=== PATIENT | female | born 1985 | race Native Hawaiian/Other Pacific Islander ===

== ENCOUNTER 2017-11-21 07:16 | Emergency (ER) | payer OTHER ==
[2017-11-21] MEDS ORDERED: Sodium Chloride 0.9% 1,000 ML IV ONE ×2 (08:11→09:58)
[2017-11-21 08:53] LABS: BASO % 0.2 % (0.0-2.0); HEMOGLOBIN 11.4 g/dL (11.0-16.0); LYMPH # 0.7 K/uL (1.0-4.3); LYMPH % 7.8 % (20.0-40.0); MEAN CELL VOLUME 83.7 fL (81.0-99.0); MEAN CORPUSCULAR HEMOGLOBIN 28.7 pg (27.0-31.0); MEAN CORPUSCULAR HGB CONC 34.3 g/dL (33.0-37.0); MEAN PLATELET VOLUME 9.2 fL (7.2-11.7); MONO # 0.8 K/uL (0.0-0.8); NEUT # 7.8 K/uL (1.8-7.0); PLATELET COUNT 155 K/uL (130-400); RBC 3.96 Mil/uL (3.80-5.20); RED CELL DISTRIBUTION WIDTH 14.1 % (11.5-14.5); WHITE BLOOD COUNT 9.3 K/uL (4.8-10.8)
[2017-11-21] MEDS ORDERED: Sodium Chloride 0.9% 1,000 ML ONE ×2 (08:57→10:03)
[2017-11-21 09:04] LABS: ALB/GLOB RATIO 1.3 (1.0-2.1); ALBUMIN 4.4 g/dL (3.5-5.0); ALT/SGPT 20 U/L (9-52); AST/SGOT 22 U/L (14-36); BLOOD UREA NITROGEN 8 mg/dL (7-17); CALCIUM 9.3 mg/dl (8.6-10.4); GFR NON-AFRICAN AMERICAN > 60; LIPASE 25 U/L (23-300)
[2017-11-21 09:17] LABS: BASOPHIL 1 % (0-2); HYPOCHROMIC SLIGHT; LYMPHOCYTE 10 % (20-40); MONOCYTE 7 % (0-10); NEUTROPHIL 82 % (50-75); PLATELET ESTIMATE NORMAL (NORMAL); TOTAL CELLS COUNTED 100
--- NOTE | 2017-11-21 09:27 | C.PDOC ---
History Of Present Illness 32-year-old female, presents to the emergency department with complaints of fever, body aches, frontal headache and back pain since yesterday. Patient notes some associated nausea. Denies vomiting, fever, chills. No other complaints at this time. Time Seen by Provider: 11/21/17 07:34 Chief Complaint (Nursing): Fever History Per: Patient History/Exam Limitations: no limitations Current Symptoms Are (Timing): Still Present Past Medical History Reviewed: Historical Data, Nursing Documentation, Vital Signs Vital Signs: Last Vital Signs Temp 99.4 F 11/21/17 11:12 Pulse 97 H 11/21/17 11:12 Resp 18 11/21/17 11:12 BP 100/54 L 11/21/17 11:12 Pulse Ox 95 11/21/17 11:27 Family History: States: No Known Family Hx - Social History Hx Alcohol Use: No Hx Substance Use: No - Immunization History Hx Tetanus Toxoid Vaccination: No Hx Influenza Vaccination: No Hx Pneumococcal Vaccination: No Review Of Systems Constitutional: Positive for: Fever, Chills, Malaise Respiratory: Negative for: Cough, Shortness of Breath Gastrointestinal: Positive for: Nausea, Abdominal Pain. Negative for: Vomiting , Diarrhea Genitourinary: Negative for: Vaginal Discharge, Vaginal Bleeding, Pelvic Pain Musculoskeletal: Positive for: Back Pain Skin: Negative for: Rash Neurological: Positive for: Headache. Negative for: Weakness, Numbness, Dizziness Physical Exam - Physical Exam Appears: Non-toxic, No Acute Distress Skin: Normal Color, Warm, Dry, No Rash Head: Atraumatic, Normacephalic, Other (No Nuchal rigdity) Eye(s): bilateral: Normal Inspection Nose: Normal Oral Mucosa: Moist Lips: Normal Appearing Neck: Normal ROM Chest: Symmetrical Cardiovascular: Rhythm Regular, No Murmur Respiratory: Normal Breath Sounds, No Decreased Breath Sounds Gastrointestinal/Abdominal: Soft, No Tenderness Back: CVA Tenderness (right) Extremity: Normal ROM, No Deformity Neurological/Psych: Oriented x3, Normal Speech ED Course And Treatment - Laboratory Results Result Diagrams: 11/21/17 08:47 11/21/17 08:47 O2 Sat by Pulse Oximetry: 95 Pulse Ox Interpretation: Normal (RA) Medical Decision Making Medical Decision Making: Plan: * Bloodwork * Toradol, Zofran, Pepcid * UA * Reassess and Disposition repeat temp 99.6, bp 100/50 hr 92 bpm patient states improvement. Will discharge home to follow up with pmd within 2 days Pt has pyelonephritis, will attempt to treat it outpatient she will f.u with PMD in 1-2 days if symptoms persist or worsen Disposition - Disposition Referrals: [facility] at [facility] [Outside] Jermain Núñez Jr., MD [Medical Doctor] - Disposition: HOME/ ROUTINE Disposition Time: 11:03 Condition: STABLE Additional Instructions: follow up with your doctor or recommended doctor within 2 days call to make an appointment take medications as prescribed drink plenty of fluids return to ER if symptoms worsens or progress Prescriptions: Ciprofloxacin HCl [Cipro] 500 mg PO BID #20 tab Naproxen [Naprosyn] 500 mg PO BID PRN #16 tab PRN Reason: Pain, Moderate (4-7) Instructions: Kidney Infection Forms: General Discharge Instructions, [facility] ([place]), School Excuse - Clinical Impression Clinical Impression: Fever, UTI (urinary tract infection), Pyelonephritis - Scribe Statement The provider has reviewed the documentation as recorded by the Scribe (Rukhsana Arriaga) All medical record entries made by the Scribe were at my direction and personally dictated by me. I have reviewed the chart and agree that the record accurately reflects my personal performance of the history, physical exam, medical decision making, and the department course for this patient. I have also personally directed, reviewed, and agree with the discharge instructions and disposition.
[2017-11-21 09:40] LABS: SQUAMOUS EPITHIAL 5 /hpf (0-5); URINE BACTERIA OCC (<OCC); URINE BILIRUBIN NEGATIVE (NEGATIVE); URINE BLOOD 1+ (NEGATIVE); URINE COLOR Straw (YELLOW); URINE GLUCOSE (UA) NORMAL (Normal); URINE LEUKOCYTE ESTERASE 1+ Leu/uL (Negative); URINE PROTEIN NEGATIVE (NEGATIVE); URINE UROBILINOGEN NORMAL mg/dL (0.2-1.0)
[2017-11-21 09:46] LABS: URINE CLARITY SLHAZY (Clear)
--- NOTE | 2017-11-21 09:55 | RAD ---
Date of service: 11/21/2017 PROCEDURE: Radiographs of the chest and abdomen (obstructive series) HISTORY: abd pain COMPARISON: No prior. TECHNIQUE: AP radiograph of the chest, with upright and supine radiographs of the abdomen. FINDINGS: CHEST: Lungs: Clear. Cardiovascular: Normal size heart. No pulmonary vascular congestion. Pleura: No pleural fluid. No pneumothorax. Other findings: None. ABDOMEN AND PELVIS: Bowel: Unremarkable bowel gas pattern. No evidence of mechanical obstruction. Free air: None. Bones: Unremarkable. Other findings: None. IMPRESSION: Unremarkable radiographs of chest and abdomen. No evidence of mechanical bowel obstruction.
[2017-11-21] MEDS ORDERED: cefTRIAXone 1 gm 1 GM/100 ML BAG IVPB ONE (10:50)
[2017-11-21 11:03] VITALS: O2SAT 95
[2017-11-21 11:13] VITALS: BP 100/54; PULSE 97; RESP 18; TEMP 99.4
== END 2017-11-21 12:22 | disposition home or self-care (01) ==
LOC: C.ER 07:16
DX: N12 Tubulo-interstitial nephritis, not specified as acute or chronic (principal); N39.0 Urinary tract infection, site not specified; R50.9 Fever, unspecified
CPT/HCPCS: 74022; 80053; 81001; 83690; 84443; 85025; 87040; 87086; 87181; 87804; 96361; 96365; 96375; 99285; J0696; J1885; J2405; J7030

== ENCOUNTER 2017-11-27 19:42 | Inpatient (IN) | payer OTHER ==
[2017-11-27] MEDS ORDERED: cefTRIAXone IV 1 gm in Dextros 50 ML IVPB STA (20:08)
[2017-11-27 20:21] LABS: BASO % 0.3 % (0.0-2.0); LYMPH # 1.4 K/uL (1.0-4.3); LYMPH % 15.2 % (20.0-40.0); MEAN CELL VOLUME 81.4 fL (81.0-99.0); MEAN CORPUSCULAR HGB CONC 35.6 g/dL (33.0-37.0); MEAN PLATELET VOLUME 8.4 fL (7.2-11.7); NEUT # 6.8 K/uL (1.8-7.0); NEUT % 73.5 % (50.0-75.0); RBC 3.79 Mil/uL (3.80-5.20); RED CELL DISTRIBUTION WIDTH 14.1 % (11.5-14.5); WHITE BLOOD COUNT 9.3 K/uL (4.8-10.8)
[2017-11-27] MEDS ORDERED: Lactated Ringer's 1,000 ML ONE (20:25)
[2017-11-27] MEDS ORDERED: Sodium Chloride 0.9% 1,000 ML IV ONE (20:27)
[2017-11-27 20:32] LABS: SQUAMOUS EPITHIAL 8 /hpf (0-5); URINE BACTERIA FEW (<OCC); URINE BILIRUBIN NEGATIVE (NEGATIVE); URINE BLOOD 3+ (NEGATIVE); URINE CLARITY Hazy (Clear); URINE COLOR Yellow (YELLOW); URINE GLUCOSE (UA) NORMAL (Normal); URINE LEUKOCYTE ESTERASE TRACE Leu/uL (Negative); URINE PROTEIN 1+ mg/dL (NEGATIVE); URINE UROBILINOGEN NORMAL mg/dL (0.2-1.0)
[2017-11-27 20:36] LABS: INR 1.3; PROTHROMBIN TIME 14.5 SECONDS (9.7-12.2)
[2017-11-27] MEDS ORDERED: Piperacillin/Tazobact 3.375 gm 100 ML IV STA (20:42)
[2017-11-27 20:47] LABS: ALB/GLOB RATIO 1.3 (1.0-2.1); ALBUMIN 4.3 g/dL (3.5-5.0); ALT/SGPT 31 U/L (9-52); AST/SGOT 19 U/L (14-36); BLOOD UREA NITROGEN 5 mg/dL (7-17); CALCIUM 9.4 mg/dl (8.6-10.4); GFR NON-AFRICAN AMERICAN > 60
[2017-11-27] MEDS ORDERED: Piperacillin/Tazobact 3.375 gm 100 ML IVPB ONE (20:48)
--- NOTE | 2017-11-27 20:49 | C.PDOC ---
History Of Present Illness 32 y/o female presents to the ED with complaints of right flank pain for the last 4 days. She reports she was originally seen here and diagnosed with pyelonephritis. Patient states she has taken the antibiotics at home but yesterday developed fever, vomiting, bodyaches, and worsening right flank pain. Denies any associated diarrhea, hematuria, chest pain, shortness of breath, or other complaints. She took Tylenol at home for pain, last dose was around 2: 00pm. PMD: None Time Seen by Provider: 11/27/17 19:54 Chief Complaint (Nursing): Back Pain History Per: Patient History/Exam Limitations: no limitations Onset/Duration Of Symptoms: Days (x4) Current Symptoms Are (Timing): Still Present Quality Of Discomfort: "Pain" Past Medical History Reviewed: Historical Data, Nursing Documentation, Vital Signs Vital Signs: Last Vital Signs Temp 101.7 F H 11/27/17 19:45 Pulse 109 H 11/27/17 19:45 Resp 16 11/27/17 19:45 BP 112/75 11/27/17 19:45 Pulse Ox 99 11/28/17 00:24 - Medical History PMH: No Chronic Diseases Surgical History: No Surg Hx Family History: States: Hypertension - Social History Hx Tobacco Use: No Hx Alcohol Use: No Hx Substance Use: No - Immunization History Hx Tetanus Toxoid Vaccination: No Hx Influenza Vaccination: No Hx Pneumococcal Vaccination: No Review Of Systems Except As Marked, All Systems Reviewed And Found Negative. Constitutional: Positive for: Fever, Other (Generalized bodyaches) Cardiovascular: Negative for: Chest Pain Respiratory: Negative for: Shortness of Breath Gastrointestinal: Positive for: Vomiting. Negative for: Diarrhea, Hematochezia , Hematemesis Genitourinary: Negative for: Hematuria Musculoskeletal: Positive for: Other (Right flank pain) Neurological: Negative for: Weakness, Dizziness Physical Exam - Physical Exam Appears: In Acute Distress (in painful distress), Other (Febrile, tired appearing) Skin: Dry, Pale Head: Atraumatic, Normacephalic Eye(s): bilateral: Normal Inspection Oral Mucosa: Moist Throat: No Erythema, No Exudate Neck: Normal ROM, Supple Lymphatic: No Adenopathy Chest: Symmetrical Cardiovascular: Rhythm Regular (but tachycardic), No Murmur Respiratory: Normal Breath Sounds, No Rales, No Rhonchi, No Wheezing Gastrointestinal/Abdominal: Soft, No Tenderness, No Mass, No Distention, No Guarding, No Rebound Back: CVA Tenderness (Right-sided), No Decreased ROM Extremity: Normal ROM, No Deformity Extremity: Bilateral: Atraumatic, Normal Color And Temperature, Normal ROM Neurological/Psych: Oriented x3, Normal Cranial Nerves, Normal Motor, Normal Sensation ED Course And Treatment - Laboratory Results Result Diagrams: 11/27/17 20:17 11/27/17 20:17 O2 Sat by Pulse Oximetry: 99 (RA) Pulse Ox Interpretation: Normal Medical Decision Making Medical Decision Making: Initial Impression: Pyelonephritis, failed outpatient treatment, sepsis Plan: --EKG --VBG --CMP --Magnesium --Phosphorous --CBC --PTT/PT --UA --Urine preg --Urine culture --Blood culture --Chest X-Ray --NSS IV fluids x 1 L --Tylenol 975 mg PO --Reassessment Records reviewed, Urine culture on 11/23/17 demonstrated resistance to multiple antibiotics. Will start patient on IV zosyn. Labs demonstrate UTI. Otherwise no clinically significant abnormalities Hospitalized for aggressive treatment of pyelonephrities Dr Dev Quezada Medical Service made aware. Disposition Counseled Patient/Family Regarding: Studies Performed, Diagnosis - Disposition Disposition: HOSPITALIZED Disposition Time: 21:00 Condition: FAIR - POA Present On Arrival: None - Clinical Impression Clinical Impression: Pyelonephritis, Sepsis - Scribe Statement The provider has reviewed the documentation as recorded by the Fredrick Nowak Provider Attestation: All medical record entries made by the Fredrick were at my direction and personally dictated by me. I have reviewed the chart and agree that the record accurately reflects my personal performance of the history, physical exam, medical decision making, and the department course for this patient. I have also personally directed, reviewed, and agree with the discharge instructions and disposition.
[2017-11-27 21:12] LABS: VENOUS BLOOD GAS BASE EXCESS 1.7 mmol/L (0.0-2.0); VENOUS BLOOD GAS PCO2 38 mmHg (40-60); VENOUS BLOOD GAS PO2 24 mm/Hg (30-55); VENOUS BLOOD PH 7.44 (7.32-7.43)
[2017-11-27] MEDS ORDERED: Sodium Chloride 0.45% 1,000 ML IV SCH (21:45)
--- NOTE | 2017-11-27 23:57 | CP.PCM.HP ---
Past Patient History - Past Social History Smoking Status: Never Smoked - RENAL Hx Pyelonephritis: Yes Other/Comment: Kidney infection - PSYCHIATRIC Hx Substance Use: No - SURGICAL HISTORY Hx Surgeries: No - ANESTHESIA Hx Anesthesia: No Meds Allergies/Adverse Reactions: Allergies Allergy/AdvReac Type Severity Reaction Status Date / Time tinidazole Allergy RASH Verified 11/27/17 19:51 Results - Vital Signs Recent Vital Signs: Last Vital Signs Temp 101.7 F H 11/27/17 19:45 Pulse 109 H 11/27/17 19:45 Resp 16 11/27/17 19:45 BP 112/75 11/27/17 19:45 Pulse Ox 99 11/27/17 20:56 - Labs Result Diagrams: 11/27/17 20:17 11/27/17 20:17 Labs: Laboratory Results - last 24 hr 11/27/17 11/27/17 11/27/17 20:17 20:17 20:17 WBC 9.3 RBC 3.79 L Hgb 11.0 Hct 30.9 L MCV 81.4 MCH 29.0 MCHC 35.6 RDW 14.1 Plt Count 209 MPV 8.4 Neut % (Auto) 73.5 Lymph % (Auto) 15.2 L Camp % (Auto) 11.0 H Eos % (Auto) 0.0 Baso % (Auto) 0.3 Neut # (Auto) 6.8 Lymph # (Auto) 1.4 Camp # (Auto) 1.0 H Eos # (Auto) 0.0 Baso # (Auto) 0.0 PT 14.5 H INR 1.3 APTT 35 H pO2 VBG pH VBG pCO2 VBG HCO3 VBG Total CO2 VBG O2 Sat (Calc) VBG Base Excess VBG Potassium Glucose Lactate Sodium 134 Potassium 3.6 Chloride 97 L Carbon Dioxide 24 Anion Gap 17 BUN 5 L Creatinine 0.7 Est GFR ( Amer) > 60 Est GFR (Non-Af Amer) > 60 Random Glucose 125 H Calcium 9.4 Phosphorus 2.7 Magnesium 2.0 Total Bilirubin 0.5 AST 19 ALT 31 Alkaline Phosphatase 62 Total Protein 7.6 Albumin 4.3 Globulin 3.3 Albumin/Globulin Ratio 1.3 Venous Blood Potassium Urine Color Urine Clarity Urine pH Ur Specific [place] Urine Protein Urine Glucose (UA) Urine Ketones Urine Blood Urine Nitrate Urine Bilirubin Urine Urobilinogen Ur Leukocyte Esterase Urine WBC (Auto) Urine RBC (Auto) Ur Squamous Epith Cells Urine Bacteria 11/27/17 11/27/17 20:20 21:00 WBC RBC Hgb Hct MCV MCH MCHC RDW Plt Count MPV Neut % (Auto) Lymph % (Auto) Camp % (Auto) Eos % (Auto) Baso % (Auto) Neut # (Auto) Lymph # (Auto) Camp # (Auto) Eos # (Auto) Baso # (Auto) PT INR APTT pO2 24 L VBG pH 7.44 H VBG pCO2 38 L VBG HCO3 24.9 VBG Total CO2 27.0 VBG O2 Sat (Calc) 51.0 VBG Base Excess 1.7 VBG Potassium 3.2 L Glucose 101 Lactate 0.8 Sodium 135.0 Potassium Chloride 102.0 Carbon Dioxide Anion Gap BUN Creatinine Est GFR ( Amer) Est GFR (Non-Af Amer) Random Glucose Calcium Phosphorus Magnesium Total Bilirubin AST ALT Alkaline Phosphatase Total Protein Albumin Globulin Albumin/Globulin Ratio Venous Blood Potassium 3.2 L Urine Color Yellow Urine Clarity Hazy Urine pH 6.0 Ur Specific [place] 1.016 Urine Protein 1+ H Urine Glucose (UA) Normal Urine Ketones 2+ H Urine Blood 3+ H Urine Nitrate Negative Urine Bilirubin Negative Urine Urobilinogen Normal Ur Leukocyte Esterase Trace Urine WBC (Auto) 9 H Urine RBC (Auto) 202 H Ur Squamous Epith Cells 8 H Urine Bacteria Few H
--- NOTE | 2017-11-28 07:22 | CP.PCM.PN ---
Subjective - Date & Time of Evaluation Date of Evaluation: 11/28/17 Time of Evaluation: 09:00 - Subjective Subjective: Progress Note for Dr. Baron Quezada's Service This is a 32 year old female with no significant PMHx who admits to pain during urination since 11/21/17 and right sided flank pain x 4 days. Patient reports she started having dysuria, hematuria, urinary frequency x 1 week. She was seen in the ED twice 11/21 and 11/27 discharged with cipro and macrobid, respectively. She returns today due to her symptoms persisting, with new onset fever, chills, flank pain x 4 days. Patient reports compliance with the antibiotics but continues with symptoms. Denied chest pain, shortness of breath, abdominal pain , n/v/d/ or constipation. PMHx: Denied PSHx: Denied Meds: Cipro and macrobid All: Tinidazole - rash SHx: Denied tobacco, alcohol, and illicit drug use Objective - Vital Signs/Intake and Output Vital Signs (last 24 hours): Temp Pulse Resp BP Pulse Ox 98.5 F 76 14 98/64 L 98 11/28/17 06:58 11/28/17 06:58 11/28/17 06:58 11/28/17 06:58 11/28/17 06:58 - Medications Medications: Current Medications Enoxaparin Sodium (Lovenox) 40 mg SC DAILY [facility] Sodium Chloride (Sodium Chloride 0.45%) 1,000 mls @ 125 mls/hr IV .Q8H [facility] Last Admin: 11/27/17 23:02 Dose: 125 mls/hr Meropenem 500 mg/ Sodium (Chloride) 100 mls @ 100 mls/hr IVPB Q8H [facility] PRN Reason: Protocol Pantoprazole Sodium (Protonix Ec Tab) 40 mg PO DAILY [facility] Saccharomyces Boulardii (Florastor) 250 mg PO Q12 [facility] - Labs Labs: 11/27/17 20:17 11/27/17 20:17 PT 14.5 SECONDS (9.7-12.2) H 11/27/17 20:17 INR 1.3 11/27/17 20:17 APTT 35 SECONDS (21-34) H 11/27/17 20:17 - Constitutional Appears: No Acute Distress - Head Exam Head Exam: NORMAL INSPECTION, NORMOCEPHALIC - Eye Exam Eye Exam: EOMI, Normal appearance, PERRL Pupil Exam: NORMAL ACCOMODATION - ENT Exam ENT Exam: Mucous Membranes Moist, Normal Exam - Neck Exam Neck Exam: Normal Inspection - Respiratory Exam Respiratory Exam: Clear to Ausculation Bilateral, NORMAL BREATHING PATTERN. absent: Decreased Breath Sounds, Wheezes - Cardiovascular Exam Cardiovascular Exam: REGULAR RHYTHM, RRR - GI/Abdominal Exam GI & Abdominal Exam: Soft, Normal Bowel Sounds. absent: Distended, Tenderness - Extremities Exam Extremities Exam: Normal Inspection. absent: Pedal Edema, Tenderness - Back Exam Back Exam: CVA tenderness (R), NORMAL INSPECTION - Neurological Exam Neurological Exam: Alert, Awake, CN II-XII Intact, Oriented x3 - Psychiatric Exam Psychiatric exam: Normal Affect, Normal Mood - Skin Skin Exam: Dry, Intact, Normal Color, Warm Assessment and Plan - Assessment and Plan (Free Text) Plan: Pyelonephritis (Right) -- ID consulted, Dr. Fregoso - TMax 101.7 on admission, no leukocytosis, no left shift, vitals stable - Previous UC on 11/21/17 grew E.coli resistant to many antibiotics, especially cipro and macrobid - F/U urine culture Imaging: - CT abdomen/pelvis- pending Management: - IVF, Meropenem, Florastor, analgesics PRN, tylenol PRN, Zofran PRN Prophylactic Measures - GI PPX: Protonix, Florastor - DVT PPX: SCDs, Lovenox Disposition: Pending repeat UC to determine antibiotic regimen and to determine if picc line is needed for longer IV course. Pending ID reccs. All orders and management as per Dr. Baron Quezada -- Radha Mahmood DO, PGY2
[2017-11-28] MEDS ORDERED: Meropenem 500 MG in Sodium Chloride 0.9% 100 ML IVPB SCH (09:00)
--- NOTE | 2017-11-28 09:19 | RAD ---
Date of service: 11/27/2017 HISTORY: Sepsis Patient COMPARISON: No prior. FINDINGS: LUNGS: No active pulmonary disease. PLEURA: No significant pleural effusion identified, no pneumothorax apparent. CARDIOVASCULAR: Normal. OSSEOUS STRUCTURES: No significant abnormalities. VISUALIZED UPPER ABDOMEN: Normal. OTHER FINDINGS: None. IMPRESSION: No active disease.
[2017-11-28 09:54] LABS: ALB/GLOB RATIO 1.2 (1.0-2.1); ALBUMIN 3.3 g/dL (3.5-5.0); ALT/SGPT 30 U/L (9-52); AST/SGOT 17 U/L (14-36); BLOOD UREA NITROGEN 5 mg/dL (7-17); CALCIUM 7.8 mg/dl (8.6-10.4); GFR NON-AFRICAN AMERICAN > 60
[2017-11-28] MEDS: Enoxaparin 40 mg Syringe SC SCH (10:22)
[2017-11-28] MEDS: Pantoprazole 40 mg EC Tab PO SCH (10:22)
[2017-11-28] MEDS: Saccharomyces Boulardi 250 mg Cap PO SCH ×2 (10:22→22:58)
[2017-11-28] MEDS: Meropenem 1 GM in Sodium Chloride 0.9% 100 ML IVPB SCH ×2 (10:28→19:31)
[2017-11-28] MEDS: Sodium Chloride 0.9% 1,000 ML IV SCH ×2 (10:45→17:17)
--- NOTE | 2017-11-28 12:57 | CARD ---
APPROVED REPORT Date of service: 11/27/2017 EKG Measurement Heart [id number] <Conclusion> Sinus tachycardia Otherwise normal ECG
[2017-11-28 13:14] VITALS: RESP 20
[2017-11-28] MEDS ORDERED: Iohexol 240 (50 ml) PO ONE ×2 (15:00→17:09)
--- NOTE | 2017-11-28 20:35 | CP.PCM.PN ---
Subjective - Date & Time of Evaluation Date of Evaluation: 11/28/17 Time of Evaluation: 09:15 - Subjective Subjective: clinically same Objective - Vital Signs/Intake and Output Vital Signs (last 24 hours): Temp Pulse Resp BP Pulse Ox 98.6 F 81 20 105/64 100 11/28/17 16:00 11/28/17 16:00 11/28/17 16:00 11/28/17 16:00 11/28/17 16:00 - Medications Medications: Current Medications Acetaminophen (Tylenol 325mg Tab) 650 mg PO Q6 PRN PRN Reason: Fever >100.4 F Last Admin: 11/28/17 14:00 Dose: 650 mg Enoxaparin Sodium (Lovenox) 40 mg SC DAILY [facility] Last Admin: 11/28/17 10:22 Dose: 40 mg Meropenem 1 gm/ Sodium (Chloride) 100 mls @ 100 mls/hr IVPB Q8H [facility] PRN Reason: Protocol Last Admin: 11/28/17 19:31 Dose: 100 mls/hr Sodium Chloride (Sodium Chloride 0.9%) 1,000 mls @ 150 mls/hr IV .Q6H40M [facility] Last Admin: 11/28/17 17:17 Dose: 150 mls/hr Ondansetron HCl (Zofran Inj) 4 mg IVP Q6 PRN PRN Reason: Nausea/Vomiting Pantoprazole Sodium (Protonix Ec Tab) 40 mg PO DAILY [facility] Last Admin: 11/28/17 10:22 Dose: 40 mg Saccharomyces Boulardii (Florastor) 250 mg PO Q12 [facility] Last Admin: 11/28/17 10:22 Dose: 250 mg - Labs Labs: 11/27/17 20:17 11/28/17 09:14 PT 14.5 SECONDS (9.7-12.2) H 11/27/17 20:17 INR 1.3 11/27/17 20:17 APTT 35 SECONDS (21-34) H 11/27/17 20:17
--- NOTE | 2017-11-28 21:36 | CP.PCM.CON ---
History of Present Illness - History of Present Illness History of Present Illness: dictated Past Patient History - Past Social History Smoking Status: Never Smoked - RENAL Hx Pyelonephritis: Yes Other/Comment: Kidney infection - PSYCHIATRIC Hx Substance Use: No - SURGICAL HISTORY Hx Surgeries: No - ANESTHESIA Hx Anesthesia: No Meds Allergies/Adverse Reactions: Allergies Allergy/AdvReac Type Severity Reaction Status Date / Time tinidazole Allergy RASH Verified 11/27/17 19:51 - Medications Medications: Current Medications Acetaminophen (Tylenol 325mg Tab) 650 mg PO Q6 PRN PRN Reason: Fever >100.4 F Last Admin: 11/28/17 14:00 Dose: 650 mg Enoxaparin Sodium (Lovenox) 40 mg SC DAILY [facility] Last Admin: 11/28/17 10:22 Dose: 40 mg Meropenem 1 gm/ Sodium (Chloride) 100 mls @ 100 mls/hr IVPB Q8H [facility] PRN Reason: Protocol Last Admin: 11/28/17 19:31 Dose: 100 mls/hr Sodium Chloride (Sodium Chloride 0.9%) 1,000 mls @ 150 mls/hr IV .Q6H40M [facility] Last Admin: 11/28/17 17:17 Dose: 150 mls/hr Ondansetron HCl (Zofran Inj) 4 mg IVP Q6 PRN PRN Reason: Nausea/Vomiting Pantoprazole Sodium (Protonix Ec Tab) 40 mg PO DAILY [facility] Last Admin: 11/28/17 10:22 Dose: 40 mg Saccharomyces Boulardii (Florastor) 250 mg PO Q12 [facility] Last Admin: 11/28/17 10:22 Dose: 250 mg Results - Vital Signs Recent Vital Signs: Last Vital Signs Temp 98.6 F 11/28/17 16:00 Pulse 81 11/28/17 16:00 Resp 20 11/28/17 16:00 BP 105/64 11/28/17 16:00 Pulse Ox 100 11/28/17 16:00 - Labs Result Diagrams: 11/27/17 20:17 11/28/17 09:14 Labs: Laboratory Results - last 24 hr 11/28/17 09:14 Sodium 137 Potassium 3.6 Chloride 106 Carbon Dioxide 21 L Anion Gap 14 BUN 5 L Creatinine 0.5 L Est GFR ( Amer) > 60 Est GFR (Non-Af Amer) > 60 Random Glucose 87 Calcium 7.8 L Phosphorus 2.6 Magnesium 2.0 Total Bilirubin 0.4 AST 17 ALT 30 Alkaline Phosphatase 46 Total Protein 6.1 L Albumin 3.3 L D Globulin 2.8 Albumin/Globulin Ratio 1.2
[2017-11-29] MEDS: Sodium Chloride 0.9% 1,000 ML IV SCH ×4 (00:16→17:58)
[2017-11-29] MEDS: Meropenem 1 GM in Sodium Chloride 0.9% 100 ML IVPB SCH ×3 (02:34→17:57)
[2017-11-29 07:38] LABS: BASO % 0.5 % (0.0-2.0); EOS % 0.6 % (0.0-4.0); HEMOGLOBIN 9.4 g/dL (11.0-16.0); LYMPH # 2.2 K/uL (1.0-4.3); LYMPH % 33.4 % (20.0-40.0); MEAN CELL VOLUME 82.2 fL (81.0-99.0); MEAN CORPUSCULAR HEMOGLOBIN 28.8 pg (27.0-31.0); MEAN CORPUSCULAR HGB CONC 35.1 g/dL (33.0-37.0); MEAN PLATELET VOLUME 8.2 fL (7.2-11.7); MONO # 0.5 K/uL (0.0-0.8); MONO % 7.9 % (0.0-10.0); NEUT # 3.7 K/uL (1.8-7.0); NEUT % 57.6 % (50.0-75.0); NRBC % 0.1 % (0.0-2.0); RBC 3.26 Mil/uL (3.80-5.20); WHITE BLOOD COUNT 6.5 K/uL (4.8-10.8)
--- NOTE | 2017-11-29 07:45 | CP.PCM.PN ---
Subjective - Date & Time of Evaluation Date of Evaluation: 11/29/17 Time of Evaluation: 07:00 - Subjective Subjective: Progress Note for Dr. Baron Quezada's Service Patient seen and examined at bedside. Patient reports she feels only slightly better. The flank pain is still persistent. Admitted to feeling warm last night. Denied chills, chest pain, shortness of breath, abdominal pain, n/v/d/ or constipation. Objective - Vital Signs/Intake and Output Vital Signs (last 24 hours): Temp Pulse Resp BP Pulse Ox 98.2 F 86 20 108/71 99 11/29/17 07:40 11/29/17 07:40 11/29/17 07:40 11/29/17 07:40 11/29/17 07:40 Intake and Output: 11/29/17 11/29/17 06:59 18:59 Intake Total 1560 Balance 1560 - Medications Medications: Current Medications Acetaminophen (Tylenol 325mg Tab) 650 mg PO Q6 PRN PRN Reason: Fever >100.4 F Last Admin: 11/28/17 23:44 Dose: 650 mg Enoxaparin Sodium (Lovenox) 40 mg SC DAILY [facility] Last Admin: 11/28/17 10:22 Dose: 40 mg Meropenem 1 gm/ Sodium (Chloride) 100 mls @ 100 mls/hr IVPB Q8H [facility] PRN Reason: Protocol Last Admin: 11/29/17 02:34 Dose: 100 mls/hr Sodium Chloride (Sodium Chloride 0.9%) 1,000 mls @ 150 mls/hr IV .Q6H40M [facility] Last Admin: 11/29/17 06:46 Dose: 150 mls/hr Ondansetron HCl (Zofran Inj) 4 mg IVP Q6 PRN PRN Reason: Nausea/Vomiting Pantoprazole Sodium (Protonix Ec Tab) 40 mg PO DAILY [facility] Last Admin: 11/28/17 10:22 Dose: 40 mg Saccharomyces Boulardii (Florastor) 250 mg PO Q12 [facility] Last Admin: 11/28/17 22:58 Dose: 250 mg - Labs Labs: 11/29/17 07:20 11/28/17 09:14 PT 14.5 SECONDS (9.7-12.2) H 11/27/17 20:17 INR 1.3 11/27/17 20:17 APTT 35 SECONDS (21-34) H 11/27/17 20:17 - Additional Findings Additional findings: - Constitutional Appears: No Acute Distress - Head Exam Head Exam: NORMAL INSPECTION, NORMOCEPHALIC - Eye Exam Eye Exam: EOMI, Normal appearance, PERRL Pupil Exam: NORMAL ACCOMODATION - ENT Exam ENT Exam: Mucous Membranes Moist, Normal Exam - Neck Exam Neck Exam: Normal Inspection - Respiratory Exam Respiratory Exam: Clear to Ausculation Bilateral, NORMAL BREATHING PATTERN. absent: Decreased Breath Sounds, Wheezes - Cardiovascular Exam Cardiovascular Exam: REGULAR RHYTHM, RRR - GI/Abdominal Exam GI & Abdominal Exam: Soft, Normal Bowel Sounds. absent: Distended, Tenderness - Extremities Exam Extremities Exam: Normal Inspection. absent: Pedal Edema, Tenderness - Back Exam Back Exam: CVA tenderness (R), NORMAL INSPECTION - Neurological Exam Neurological Exam: Alert, Awake, CN II-XII Intact, Oriented x3 - Psychiatric Exam Psychiatric exam: Normal Affect, Normal Mood - Skin Skin Exam: Dry, Intact, Normal Color, Warm Assessment and Plan - Assessment and Plan (Free Text) Plan: Pyelonephritis (Right) --- ID consulted, Dr. Fregoso - TMax 101.7 on admission, no leukocytosis, no left shift, vitals stable - Previous UC on 11/21/17 grew E.coli, resistant to many antibiotics, especially cipro and macrobid - F/U urine culture Management: - IVF, Meropenem, Florastor, analgesics PRN, tylenol PRN, Zofran PRN Anemia - Likely dilutional - Iron studies ordered - Will continue to monitor Prophylactic Measures - GI PPX: Protonix, Florastor - DVT PPX: SCDs, Lovenox Disposition: Pending repeat UC to determine antibiotic regimen and to determine if picc line is needed for longer IV course. Pending ID reccs. All orders and management as per Dr. Baron Quezada -- Radha Mahmood DO, PGY2
[2017-11-29 07:55] LABS: ALB/GLOB RATIO 1.1 (1.0-2.1); ALBUMIN 3.2 g/dL (3.5-5.0); ALT/SGPT 21 U/L (9-52); AST/SGOT 11 U/L (14-36); BLOOD UREA NITROGEN 2 mg/dL (7-17); CALCIUM 8.4 mg/dl (8.6-10.4); GFR NON-AFRICAN AMERICAN > 60
--- NOTE | 2017-11-29 09:12 | CON ---
DATE: 11/28/2017 INFECTIOUS DISEASE CONSULT REQUESTED BY: Earnestine Quezada MD HISTORY OF PRESENT ILLNESS: This patient is a 32-year-old female. She was having abdominal pain and she was seen on 11/21/2017 in the emergency room in [facility] by the ER physician and she was given Cipro and she was sent home as she did have UTI, and so they gave Cipro and sent her home. Then again, she was not feeling better. She was still having pain, abdominal pain. So she came on 11/23/[address] she had a CT scan done, which showed some mild pyelonephritis. She was given Macrodantin and she was sent home and last night she could not bear pain and was having headaches and was having nausea and having right flank pain. She has been taking the antibiotics, but it did not help her and she developed fever, vomiting, body aches, right flank pain, and severe headaches. She denied any hematuria or dysuria, but she was just not feeling right and not getting better, continued to have back pain and she decided to come back to the emergency room. 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 She says she may have had once UTI in the [place], otherwise she has been fine. She denies any medical problems. She does not take any medicines regularly. She says she was told that the urine was resistant to Cipro and so I changed it to Macrodantin. She came here with a fever of 101.7 yesterday. She is not having any nausea and vomiting when I am seeing her, but she still complains of terrible headache and is still not feeling well. PAST MEDICAL HISTORY: Noncontributory. Just one episode of UTI in the past. PAST SURGICAL HISTORY: No previous surgeries. FAMILY HISTORY: Significant for hypertension. SOCIAL HISTORY: Negative for smoking or drinking, or any drug abuse. She denies any sexual activity recently, but she has been sexually active in [place] and she is having her periods today which started just today, which may be also leading to abdominal pain. REVIEW OF SYSTEMS: Positive for fevers, severe headache. Denies any neck pain. No chest pain. No shortness of breath. No nausea. She did have vomiting before, she says yesterday, but no nausea or vomiting right now. No diarrhea. No hemoptysis or hematemesis. She does complain of feeling tired, but denies any hematuria, has dysuria and flank pain at this time. PHYSICAL EXAMINATION: VITAL SIGNS: I find her temperature is 98.6, pulse is 81, blood pressure was low at 94/55, right now it is 105/64, respirations are 20. HEENT: Head is atraumatic, normocephalic. Pupils are reacting to light. Eye movements are unremarkable. Tongue is still dry. NECK: Supple. JVP is flat. Trachea is central. CHEST: Chest wall is symmetrical. No crackles or rales heard. HEART: S1, S2 are regular. No murmurs appreciated. ABDOMEN: She has right flank tenderness. No guarding. No rigidity present. EXTREMITIES: Have no edema, clubbing, or cyanosis. SKIN: Normal. NEUROLOGIC: No neurological problems and she is alert, oriented x3. LABORATORY DATA: White count is 9.3, hemoglobin is 11, hematocrit 30.9, this is from last night, hemoglobin is 2.9. INR is 1.3. ABG was noted, pH 7.44, pCO2 is 38. Her bicarb is 24.9, and her lactate level was 0.8. She has CO2 of 21 now, creatinine is 0.5. I had ordered a CAT scan for her, but when I went to see her she told me she already had a CAT scan on 11/23/2017, so I have stopped the CAT scan today as I will follow the report of the previous CAT scan. UA shows from yesterday, wbc 9, rbc is 202, and urine bacteria few, ketones 2+, blood 3+, she has lot of blood there. Report in all visits, they did abdominal obstructive series when she came on 11/21/2017, which shows unremarkable radiology of chest and abdomen. No evidence of mechanical bowel obstruction, so that was on that date. Then she had an abdominal pelvic CT which was done on 11/23/2017, that is 5 days ago and that shows right kidney demonstrates a patchy density anteriorly on series 2 measuring 2 cm extending to the quadratus which is concerning for a focus of pyelonephritis, additional small foci of abnormal attenuation noted elsewhere in the right kidney. Clinical correlation. Mild cortical volume loss in the lower pole of the left kidney. There is moderate fecal retention, and she also has a follicular cyst in the right ovarian and she has some thickening of the bladder which shows cystitis, so she does have active right pyelonephritis and we will continue with meropenem. She will at least need 10 to 14 days of meropenem and if she does not continue to improve in the next 2 days, I think we will need an Urology evaluation. Sarai Fregoso MD
--- NOTE | 2017-11-29 10:28 | CP.PCM.PN ---
Subjective - Date & Time of Evaluation Date of Evaluation: 11/29/17 Time of Evaluation: 08:15 - Subjective Subjective: clinically same Objective - Vital Signs/Intake and Output Vital Signs (last 24 hours): Temp Pulse Resp BP Pulse Ox 98.2 F 86 20 108/71 99 11/29/17 07:40 11/29/17 07:40 11/29/17 07:40 11/29/17 07:40 11/29/17 07:40 Intake and Output: 11/29/17 11/29/17 06:59 18:59 Intake Total 1560 Balance 1560 - Medications Medications: Current Medications Acetaminophen (Tylenol 325mg Tab) 650 mg PO Q6 PRN PRN Reason: Fever >100.4 F Last Admin: 11/28/17 23:44 Dose: 650 mg Enoxaparin Sodium (Lovenox) 40 mg SC DAILY [facility] Last Admin: 11/28/17 10:22 Dose: 40 mg Meropenem 1 gm/ Sodium (Chloride) 100 mls @ 100 mls/hr IVPB Q8H [facility]OS PRN Reason: Protocol Last Admin: 11/29/17 02:34 Dose: 100 mls/hr Sodium Chloride (Sodium Chloride 0.9%) 1,000 mls @ 150 mls/hr IV .Q6H40M [facility] Last Admin: 11/29/17 06:46 Dose: 150 mls/hr Ondansetron HCl (Zofran Inj) 4 mg IVP Q6 PRN PRN Reason: Nausea/Vomiting Pantoprazole Sodium (Protonix Ec Tab) 40 mg PO DAILY [facility] Last Admin: 11/28/17 10:22 Dose: 40 mg Saccharomyces Boulardii (Florastor) 250 mg PO Q12 [facility] Last Admin: 11/28/17 22:58 Dose: 250 mg - Labs Labs: 11/29/17 07:20 11/29/17 07:20 PT 14.5 SECONDS (9.7-12.2) H 11/27/17 20:17 INR 1.3 11/27/17 20:17 APTT 35 SECONDS (21-34) H 11/27/17 20:17
[2017-11-29] MEDS: Pantoprazole 40 mg EC Tab PO SCH (11:02)
[2017-11-29] MEDS: Saccharomyces Boulardi 250 mg Cap PO SCH ×2 (11:02→21:51)
[2017-11-29] MEDS: Enoxaparin 40 mg Syringe SC SCH (11:02)
--- NOTE | 2017-11-29 14:47 | CP.PCM.PN ---
Subjective - Date & Time of Evaluation Date of Evaluation: 11/29/17 Time of Evaluation: 13:15 - Subjective Subjective: dictated Objective - Vital Signs/Intake and Output Vital Signs (last 24 hours): Temp Pulse Resp BP Pulse Ox 98.2 F 86 20 108/71 99 11/29/17 07:40 11/29/17 07:40 11/29/17 07:40 11/29/17 07:40 11/29/17 07:40 Intake and Output: 11/29/17 11/29/17 06:59 18:59 Intake Total 1560 Balance 1560 - Medications Medications: Current Medications Acetaminophen (Tylenol 325mg Tab) 650 mg PO Q6 PRN PRN Reason: Fever >100.4 F Last Admin: 11/28/17 23:44 Dose: 650 mg Enoxaparin Sodium (Lovenox) 40 mg SC DAILY [facility] Last Admin: 11/29/17 11:02 Dose: 40 mg Meropenem 1 gm/ Sodium (Chloride) 100 mls @ 100 mls/hr IVPB Q8H [facility] PRN Reason: Protocol Last Admin: 11/29/17 11:00 Dose: 100 mls/hr Sodium Chloride (Sodium Chloride 0.9%) 1,000 mls @ 150 mls/hr IV .Q6H40M [facility] Last Admin: 11/29/17 14:38 Dose: Not Given Ondansetron HCl (Zofran Inj) 4 mg IVP Q6 PRN PRN Reason: Nausea/Vomiting Pantoprazole Sodium (Protonix Ec Tab) 40 mg PO DAILY [facility] Last Admin: 11/29/17 11:02 Dose: 40 mg Saccharomyces Boulardii (Florastor) 250 mg PO Q12 [facility] Last Admin: 11/29/17 11:02 Dose: 250 mg - Labs Labs: 11/29/17 07:20 11/29/17 07:20 PT 14.5 SECONDS (9.7-12.2) H 11/27/17 20:17 INR 1.3 11/27/17 20:17 APTT 35 SECONDS (21-34) H 11/27/17 20:17
[2017-11-30] MEDS: Meropenem 1 GM in Sodium Chloride 0.9% 100 ML IVPB SCH ×2 (01:22→09:58)
[2017-11-30] MEDS: Sodium Chloride 0.9% 1,000 ML IV SCH ×2 (01:40→10:00)
[2017-11-30 08:30] VITALS: BP 112/79; PULSE 71; TEMP 98.1; O2SAT 99
[2017-11-30 08:32] LABS: BASO % 0.5 % (0.0-2.0); EOS # 0.1 K/uL (0.0-0.7); EOS % 1.3 % (0.0-4.0); HEMOGLOBIN 9.3 g/dL (11.0-16.0); LYMPH % 44.8 % (20.0-40.0); MEAN CELL VOLUME 82.2 fL (81.0-99.0); MEAN CORPUSCULAR HEMOGLOBIN 28.4 pg (27.0-31.0); MEAN CORPUSCULAR HGB CONC 34.5 g/dL (33.0-37.0); MEAN PLATELET VOLUME 8.2 fL (7.2-11.7); MONO # 0.4 K/uL (0.0-0.8); MONO % 9.4 % (0.0-10.0); NEUT # 1.9 K/uL (1.8-7.0); RBC 3.29 Mil/uL (3.80-5.20); RED CELL DISTRIBUTION WIDTH 13.9 % (11.5-14.5); WHITE BLOOD COUNT 4.4 K/uL (4.8-10.8)
[2017-11-30 08:33] LABS: IRON 38 ug/dL (37-170)
[2017-11-30 08:43] LABS: % IRON SATURATION 13 (20-55); ALB/GLOB RATIO 1.2 (1.0-2.1); ALBUMIN 3.5 g/dL (3.5-5.0); ALT/SGPT 32 U/L (9-52); AST/SGOT 15 U/L (14-36); BLOOD UREA NITROGEN 2 mg/dL (7-17); GFR NON-AFRICAN AMERICAN > 60; TOTAL IRON BINDING CAPACITY 292 ug/dL (250-450)
[2017-11-30 09:11] LABS: FERRITIN 45.9 ng/mL
--- NOTE | 2017-11-30 09:47 | CP.PCM.PN ---
Subjective - Date & Time of Evaluation Date of Evaluation: 11/30/17 Time of Evaluation: 09:00 - Subjective Subjective: Progress Note for Dr. Baron Quezada's Service Patient seen and examined at bedside. Patient reports she feels better. She admits to a slight headache. Denied chills, chest pain, shortness of breath, abdominal pain, n/v/d/ or constipation. Objective - Vital Signs/Intake and Output Vital Signs (last 24 hours): Temp Pulse Resp BP Pulse Ox 98.1 F 71 20 112/79 99 11/30/17 08:29 11/30/17 08:29 11/30/17 08:29 11/30/17 08:29 11/30/17 08:29 Intake and Output: 11/30/17 11/30/17 06:59 18:59 Intake Total 3010 Balance 3010 - Medications Medications: Current Medications Acetaminophen (Tylenol 325mg Tab) 650 mg PO Q6 PRN PRN Reason: Fever >100.4 F Last Admin: 11/28/17 23:44 Dose: 650 mg Enoxaparin Sodium (Lovenox) 40 mg SC DAILY [facility] Last Admin: 11/29/17 11:02 Dose: 40 mg Meropenem 1 gm/ Sodium (Chloride) 100 mls @ 100 mls/hr IVPB Q8H [facility] PRN Reason: Protocol Last Admin: 11/30/17 01:22 Dose: 100 mls/hr Sodium Chloride (Sodium Chloride 0.9%) 1,000 mls @ 150 mls/hr IV .Q6H40M [facility] Last Admin: 11/30/17 01:40 Dose: 150 mls/hr Ondansetron HCl (Zofran Inj) 4 mg IVP Q6 PRN PRN Reason: Nausea/Vomiting Pantoprazole Sodium (Protonix Ec Tab) 40 mg PO DAILY [facility] Last Admin: 11/29/17 11:02 Dose: 40 mg Saccharomyces Boulardii (Florastor) 250 mg PO Q12 [facility] Last Admin: 11/29/17 21:51 Dose: 250 mg - Labs Labs: 11/30/17 08:13 11/30/17 08:13 PT 14.5 SECONDS (9.7-12.2) H 11/27/17 20:17 INR 1.3 11/27/17 20:17 APTT 35 SECONDS (21-34) H 11/27/17 20:17 - Additional Findings Additional findings: - Constitutional Appears: No Acute Distress - Head Exam Head Exam: NORMAL INSPECTION, NORMOCEPHALIC - Eye Exam Eye Exam: EOMI, Normal appearance, PERRL Pupil Exam: NORMAL ACCOMODATION - ENT Exam ENT Exam: Mucous Membranes Moist, Normal Exam - Neck Exam Neck Exam: Normal Inspection - Respiratory Exam Respiratory Exam: Clear to Ausculation Bilateral, NORMAL BREATHING PATTERN. absent: Decreased Breath Sounds, Wheezes - Cardiovascular Exam Cardiovascular Exam: REGULAR RHYTHM, RRR - GI/Abdominal Exam GI & Abdominal Exam: Soft, Normal Bowel Sounds. absent: Distended, Tenderness - Extremities Exam Extremities Exam: Normal Inspection. absent: Pedal Edema, Tenderness - Back Exam Back Exam: CVA tenderness (R), NORMAL INSPECTION - Neurological Exam Neurological Exam: Alert, Awake, CN II-XII Intact, Oriented x3 - Psychiatric Exam Psychiatric exam: Normal Affect, Normal Mood - Skin Skin Exam: Dry, Intact, Normal Color, Warm Assessment and Plan - Assessment and Plan (Free Text) Plan: Pyelonephritis (Right) --- ID consulted, Dr. Fregoso - TMax 101.7 on admission, no leukocytosis, no left shift, vitals stable - Previous UC on 11/21/17 grew E.coli, resistant to many antibiotics, especially cipro and macrobid - Urine culture on this admission - <50,000 CFU, 11/21/17 UC grew ESBL + Management: - IVF, Meropenem, Florastor, analgesics PRN, tylenol PRN, Zofran PRN - PICC line to be inserted today, arranging for outpatient infusion center for total 10 day treatment Anemia - Likely dilutional - Iron studies ordered - WN - Will continue to monitor Prophylactic Measures - GI PPX: Protonix, Florastor - DVT PPX: SCDs, Lovenox 11/30/17 - - PICC line to be inserted today, arranging for outpatient infusion center for total 10 day treatment Disposition: Patient is medically stable for discharge as per Dr. Baron Quezada. Patient will continue to receive IV antiobiotics via the infusion center for total 10 day treatment. You are to continue receiving the antibiotics for total 10 days. When you come to get the medication. You will once a week (this will happen 2 times) you will have labs drawn to monitor your liver and kidney numbers. You will also be taking a probiotic twice a day to prevent the side effects that could happen when taking an antibiotic. Please hydrate yourself. Please follow up with your primary care doctor within 1- 2 weeks. Please follow up with the Infectious Disease Doctor - Dr. Fregoso - in 2 weeks. Please take care and be well! All orders and management as per Dr. Baron Quezada -- Radha Mahmood DO, PGY2
[2017-11-30] MEDS: Pantoprazole 40 mg EC Tab PO SCH (09:58)
[2017-11-30] MEDS: Enoxaparin 40 mg Syringe SC SCH ×2 (09:59→11:00)
[2017-11-30] MEDS: Saccharomyces Boulardi 250 mg Cap PO SCH (11:00)
[2017-11-30] MEDS ORDERED: Pneumococcal 23-Valent Vaccine IM ONE (12:20)
--- NOTE | 2017-11-30 12:43 | RAD ---
Date of service: 11/30/2017 HISTORY: verify right PICC COMPARISON: 11/27/2017. FINDINGS: The right PICC line terminates in the SVC. LUNGS: The lungs are well inflated and clear. PLEURA: No significant pleural effusion identified, no pneumothorax apparent. CARDIOVASCULAR: Normal. OSSEOUS STRUCTURES: No significant abnormalities. VISUALIZED UPPER ABDOMEN: Normal. OTHER FINDINGS: None. IMPRESSION: Right PICC line terminates in the SVC. No pneumothorax. No acute findings.
--- NOTE | 2017-11-30 14:16 | CP.PCM.PN ---
Subjective - Date & Time of Evaluation Date of Evaluation: 11/30/17 Time of Evaluation: 14:00 - Subjective Subjective: dictated Objective - Vital Signs/Intake and Output Vital Signs (last 24 hours): Temp Pulse Resp BP Pulse Ox 98.1 F 71 20 112/79 99 11/30/17 08:29 11/30/17 08:29 11/30/17 08:29 11/30/17 08:29 11/30/17 08:29 Intake and Output: 11/30/17 11/30/17 06:59 18:59 Intake Total 3010 Balance 3010 - Medications Medications: Current Medications Acetaminophen (Tylenol 325mg Tab) 650 mg PO Q6 PRN PRN Reason: Fever >100.4 F Last Admin: 11/30/17 13:43 Dose: 650 mg Enoxaparin Sodium (Lovenox) 40 mg SC DAILY [facility] Last Admin: 11/30/17 09:59 Dose: 40 mg Meropenem 1 gm/ Sodium (Chloride) 100 mls @ 100 mls/hr IVPB Q8H [facility] PRN Reason: Protocol Last Admin: 11/30/17 09:58 Dose: 100 mls/hr Sodium Chloride (Sodium Chloride 0.9%) 1,000 mls @ 150 mls/hr IV .Q6H40M [facility] Last Admin: 11/30/17 10:00 Dose: Not Given Ondansetron HCl (Zofran Inj) 4 mg IVP Q6 PRN PRN Reason: Nausea/Vomiting Pantoprazole Sodium (Protonix Ec Tab) 40 mg PO DAILY [facility] Last Admin: 11/30/17 09:58 Dose: 40 mg Saccharomyces Boulardii (Florastor) 250 mg PO Q12 [facility] Last Admin: 11/30/17 11:00 Dose: 250 mg - Labs Labs: 11/30/17 08:13 11/30/17 08:13 PT 14.5 SECONDS (9.7-12.2) H 11/27/17 20:17 INR 1.3 11/27/17 20:17 APTT 35 SECONDS (21-34) H 11/27/17 20:17
--- NOTE | 2017-12-01 02:46 | PN ---
DATE: 11/30/2017 SUBJECTIVE: The patient was feeling better. We have placed the PICC line. She got the PICC line, and she was okay. She will be coming for infusion to the hospital. She was given Invanz. She tolerated it well. There is no nausea, no vomiting, no diarrhea. She denies any right CVA tenderness. She did have E. Coli ESBL positive on the last positive culture that was on 11/21/2017. Since then, she has had acute right pyelonephritis. On 11/27/2017, there were gram-negative rods, but they were between 10,000 and 50,000. She has been on Macrodantin for few days. I decided to send her on IV antibiotics. She will be getting nine more days, and she will be taking Florastor. This plan was discussed with Dr. Evelio Quezada. PHYSICAL EXAMINATION: VITAL SIGNS: T-max is 98.1, pulse 71, blood pressure 112/79, respirations are 20. HEENT: Head is atraumatic, normocephalic. NECK: Supple. LUNGS: Clear. HEART: S1, S2 are regular. ABDOMEN: Soft, nontender. No guarding, no rigidity present. EXTREMITIES: She has a PICC line in the right arm. Extremities remain without any edema. ASSESSMENT AND PLAN: Plan is to treat her for the Escherichia coli Escherichia extended-spectrum beta-lactamases positive acute pyelonephritis of the right side and to take Florastor by mouth and to follow up by urinalysis and urine culture and sensitivity in two weeks. She was also told to see a urologist to make sure that the pyelonephritis is improved. Sarai Fregoso MD
== END 2017-11-30 15:19 | disposition home or self-care (01) | DRG 872 ==
LOC: C.ER 19:42 → C.9E 21:09 → OBSVTOIN 11-28 11:33 → C.3T 11-28 14:28
PROVIDERS: ADMIT Internal Medicine Nephrology; ATTEND Internal Medicine Nephrology
PROC: 02HV33Z Insertion of Infusion Device into Superior Vena Cava, Percutaneous Approach (ICD-10-PCS; principal; 2017-11-29)
DX: A41.9 Sepsis, unspecified organism (principal); N12 Tubulo-interstitial nephritis, not specified as acute or chronic; N10 Acute pyelonephritis; I10 Essential (primary) hypertension; B96.20 Unspecified Escherichia coli [E. coli] as the cause of diseases classified elsewhere